=== PATIENT | male | born 1970 | race Caucasian/White ===

== ENCOUNTER 2017-05-02 23:20 | Emergency (ER) | payer SELFPAY ==
[~2017-05-02] VITALS: Ht 180.3 cm; Wt 87.2 kg
[2017-05-02 23:25] VITALS: BP 168/100; PULSE 110; TEMP 97.5; O2SAT 99
[2017-05-02 23:32] VITALS: BP 168/100; PULSE 110; RESP 15; TEMP 97.5; O2SAT 99
--- NOTE | 2017-05-02 23:52 | PD ---
HPI Chief Complaint: Hypertension Time Seen by Provider: 23:25 Travel History International Travel<30 days: No Contact w/Intl Traveler<30days: No Traveled to known affect area: No History of Present Illness HPI 47-year-old male presents to the emergency department by private transportation for one day of dizziness. Patient states he drank alcohol heavily last night. Patient states he drinks alcohol once a week on . Patient does not know if he has high blood pressure but today while feeling dizzy went to a local drugstore and checked his blood pressure is elevated. Patient denies any chest pain shortness of breath upper lobe history numbness tingling or weakness no reported ataxia gait. Patient takes no medications on a daily basis. Patient cancer smoke cigarettes. [facility] Past Medical History Narrative Medical Negative past medical history negative surgical history occasional tobacco use occasional alcohol use nursing notes reviewed Medical History: Denies Significant Hx Tetanus Vaccination: Unknown ?: Not Past Surgical History Surgical History: No Previous Surgery Social History Alcohol Use: Yes (1/2 LITER VODKA LAST NIGHT) Tobacco Use: Yes (WHEN DRINKING ETOH) Substance Use: No Allergies-Medications (Allergen,Severity, Reaction): Coded Allergies: No Known Drug Allergies (Verified Allergy, Unknown, 05/02/17) Reported Meds & Prescriptions Reported Meds & Active Scripts Active Clonidine (Clonidine HCl) 0.1 Mg Tab 0.1 Mg PO Q12HR PRN Norvasc (Amlodipine Besylate) 5 Mg Tab 5 Mg PO DAILY Review of Systems Except as stated in HPI: all other systems reviewed are Neg Physical Exam Narrative GENERAL: Well-developed well-nourished female in acute distress no respiratory distress SKIN: Warm and dry. HEAD: Atraumatic. Normocephalic. EYES: Pupils equal and round. No scleral icterus. No injection or drainage. ENT: No nasal bleeding or discharge. Mucous membranes pink and moist. NECK: Trachea midline. No JVD. CARDIOVASCULAR: Regular rate and rhythm. RESPIRATORY: No accessory muscle use. Clear to auscultation. Breath sounds equal bilaterally. GASTROINTESTINAL: Abdomen soft, non-tender, nondistended. Hepatic and splenic margins not palpable. MUSCULOSKELETAL: Extremities without clubbing, cyanosis, or edema. No obvious deformities. NEUROLOGICAL: Awake and alert. No obvious cranial nerve deficits. Motor grossly within normal limits. Five out of 5 muscle strength in the arms and legs. No pronator drift no limb ataxia Normal speech. PSYCHIATRIC: Appropriate mood and affect; insight and judgment normal. Data Data Last Documented VS Vital Signs Date Time Temp Pulse Resp B/P (MAP) Pulse Ox O2 Delivery O2 Flow Rate FiO2 05/03/17 03:30 92 14 149/86 (107) 97 05/03/17 01:25 Room Air 05/02/17 23:32 97.5 Orders Orders Electrocardiogram (05/02/17 23:52) Basic Metabolic Panel (Bmp) (05/02/17 23:52) Complete Blood Count With Diff (05/02/17 23:52) Magnesium (Mg) (05/02/17 23:52) Troponin I (05/02/17:52) Ecg Monitoring (05/02/17 23:52) Iv Access Insert/Monitor (05/02/17 23:52) Oximetry (05/02/17 23:52) Sodium Chloride 0.9% Flush (Ns Flush) (05/03/17 00:00) Alcohol (Ethanol) (05/02/17 23:52) Orthostatic Vital Signs (05/02/17 23:52) Potassium Chloride (Kcl) (05/03/17 01:45) Clonidine (Catapres) (05/03/17 01:45) Labs Laboratory Tests Test 05/03/17 00:20 White Blood Count 11.9 TH/MM3 Red Blood Count 4.62 MIL/MM3 Hemoglobin 14.1 GM/DL Hematocrit 40.5 % Mean Corpuscular Volume 87.8 FL Mean Corpuscular Hemoglobin 30.5 PG Mean Corpuscular Hemoglobin Concent 34.8 % Red Cell Distribution Width 11.8 % Platelet Count 252 TH/MM3 Mean Platelet Volume 8.0 FL Neutrophils (%) (Auto) 73.2 % Lymphocytes (%) (Auto) 16.8 % Monocytes (%) (Auto) 9.0 % Eosinophils (%) (Auto) 0.4 % Basophils (%) (Auto) 0.6 % Neutrophils # (Auto) 8.7 TH/MM3 Lymphocytes # (Auto) 2.0 TH/MM3 Monocytes # (Auto) 1.1 TH/MM3 Eosinophils # (Auto) 0.0 TH/MM3 Basophils # (Auto) 0.1 TH/MM3 CBC Comment DIFF FINAL Differential Comment Blood Urea Nitrogen 18 MG/DL Creatinine 1.30 MG/DL Random Glucose 97 MG/DL Calcium Level 8.4 MG/DL Magnesium Level 2.0 MG/DL Sodium Level 139 MEQ/L Potassium Level 3.3 MEQ/L Chloride Level 103 MEQ/L Carbon Dioxide Level 28.7 MEQ/L Anion Gap 7 MEQ/L Estimat Glomerular Filtration Rate 59 ML/MIN Troponin I LESS THAN 0.02 NG/ML Ethyl Alcohol Level LESS THAN 3 MG/DL MDM Medical Decision Making Medical Screen Exam Complete: Yes Emergency Medical Condition: Yes Medical Record Reviewed: Yes Interpretation(s) EKG: Normal sinus rhythm rate [address] elevation injury pattern or ectopy Vital Signs Date Time Temp Pulse Resp B/P (MAP) Pulse Ox O2 Delivery O2 Flow Rate FiO2 05/03/17 03:30 92 14 149/86 (107) 97 05/03/17 02:35 81 14 166/91 (116) 99 05/03/17 01:25 96 15 177/99 (125) 99 Room Air 05/03/17 00:21 102 180/99 (126) 105 174/103 (126) 105 160/101 (120) 05/03/17 00:13 98 Room Air 05/02/17 23:37 99 Room Air 05/02/17 23:32 97.5 110 15 168/100 (122) 99 05/02/17 23:25 97.5 110 168/100 (122) 99 CBC & BMP Diagram 05/03/17 00:20 Calcium Level 8.4 L, Magnesium Level 2.0 Differential Diagnosis Dizziness, arrhythmia, TIA, CVA, ICH, uncontrolled hypertension, ACS, dissection Narrative Course 47-year-old male with complaint of dizziness with normal neurologic exam NIHSS 0 noted to have hypertensive blood pressure EKG no acute injury Lab values grossly normal range CT canceled as patient refuses imaging study and NIH SS: 0 Patient administered clonidine 0.1 mg by mouth Blood pressure with good response to clonidine Patient with multiple elevated blood pressures and will be started on antihypertensive with as needed clonidine and encouraged to follow-up with primary care provider also encouraged to discontinue alcohol use Diagnosis Primary Impression: HTN (hypertension) Referrals: Primary Care Physician call for appointment Patient Instructions: General Instructions Additional Instructions: Increase fluid hydration Do not drink alcoholic beverages Take medication as prescribed Use: Without only as needed based on blood pressures Follow-up with primary care provider Return to the emergency department for any concerns or change in condition Med/Other Pt SpecificInfo: Prescription(s) given Scripts Clonidine (Clonidine) 0.1 Mg Tab 0.1 MG PO Q12HR Y for SBP>180, DBP>95, #6 TAB 0 Refills Prov: Lizbeth Sifuentes MD 05/03/17 Amlodipine (Norvasc) 5 Mg Tab 5 MG PO DAILY for Blood Pressure Management, #30 TAB 0 Refills Prov: Lizbeth Sifuentes MD 05/03/17 Disposition: 01 DISCHARGE HOME Condition: Stable Lizbeth Sifuentes MD May 02, 2017 23:51
[2017-05-03] MEDS ORDERED: SODIUM CHLORIDE 0.9% FLUSH 10 ML FLUSH IVF PRN
[2017-05-03 00:13] VITALS: O2SAT 98
[2017-05-03 00:21] VITALS: BP_SYST 160; BP_SYST 174; BP_SYST 180; BP_DIAS 101; BP_DIAS 103; BP_DIAS 99
[2017-05-03 00:36] LABS: AUTOMATED NEUTROPHIL # 8.7 TH/MM3 (1.8-7.7); BASOPHIL # 0.1 TH/MM3 (0-0.2); BASOPHIL % 0.6 % (0.0-2.0); EOSINOPHIL % 0.4 % (0.0-4.0); HEMATOCRIT 40.5 % (39.0-51.0); HEMOGLOBIN 14.1 GM/DL (13.0-17.0); LYMPH % 16.8 % (9.0-44.0); MEAN CELL VOLUME 87.8 FL (80.0-100.0); MEAN CORPUSCULAR HEMOGLOBIN 30.5 PG (27.0-34.0); MEAN CORPUSCULAR HGB CONC 34.8 % (32.0-36.0); MONOCYTE # 1.1 TH/MM3 (0-0.9); NEUT % 73.2 % (16.0-70.0); PLATELET COUNT 252 TH/MM3 (150-450); RED BLOOD COUNT 4.62 MIL/MM3 (4.50-5.90); RED CELL DISTRIBUTION WIDTH 11.8 % (11.6-17.2); WHITE BLOOD COUNT 11.9 TH/MM3 (4.0-11.0)
[2017-05-03 00:49] LABS: CHLORIDE 103 MEQ/L (98-107); SODIUM (NA) 139 MEQ/L (136-145)
[2017-05-03 00:51] LABS: CALCIUM 8.4 MG/DL (8.5-10.1)
[2017-05-03 00:52] LABS: BICARBONATE 28.7 MEQ/L (21.0-32.0); BLOOD UREA NITROGEN 18 MG/DL (7-18); GLUCOSE,RANDOM 97 MG/DL (74-106)
[2017-05-03 00:55] LABS: GLOMERULAR FILTRATION RATE 59 ML/MIN (>89)
[2017-05-03 01:00] LABS: TROPONIN I LESS THAN 0.02 NG/ML (0.02-0.05)
[2017-05-03 01:25] VITALS: BP 177/99; PULSE 96; RESP 15; O2SAT 99
[2017-05-03] MEDS ORDERED: POTASSIUM CHLORIDE 20 MEQ CONTROLLED RELEASE TAB PO ONE (01:45)
[2017-05-03] MEDS ORDERED: cloNIDine HCL 0.1 MG TAB PO ONE (01:45)
[2017-05-03 02:35] VITALS: BP 166/91; PULSE 81; RESP 14; O2SAT 99
[2017-05-03] MEDS ORDERED: CLON0.1T PO (03:07)
[2017-05-03] MEDS ORDERED: AMLO5 PO (03:07)
[2017-05-03 03:30] VITALS: BP 149/86
--- NOTE | 2017-05-05 09:36 | EKG ---
Date Performed: 05/02/2017 Time Performed: 23:58:25 PTAGE: 47 years EKG: Sinus rhythm NORMAL ECG NO PREVIOUS TRACING DOCTOR: Anthony Santa Interpretating Date/Time 05/05/2017 09:34:25
== END 2017-05-03 03:45 | disposition home or self-care (01) ==
LOC: PHED 23:20
DX: R42 Dizziness and giddiness (principal); I10 Essential (primary) hypertension; F17.210 Nicotine dependence, cigarettes, uncomplicated; Z72.0 Tobacco use; Z79.899 Other long term (current) drug therapy
CPT/HCPCS: 80048; 80307; 83735; 84484; 85025; 93005